=== PATIENT | male | born 1990 | race Caucasian/White ===

== ENCOUNTER 2017-07-13 06:50 | Emergency (ER) | payer OTHER ==
[2017-07-13 06:56] VITALS: RESP 18; TEMP 98.8
--- NOTE | 2017-07-13 07:58 | EDPHY ---
H & P Stated Complaint: Left ring finger laceration - Personal History Current Tetanus Diphtheria and Acellular Pertussis (TDAP): Yes - Medical/Surgical History Hx Asthma: No Hx Chronic Respiratory Disease: No Hx Diabetes: No Hx Cardiac Disease: No Hx Renal Disease: No Hx Cirrhosis: No Hx Alcoholism: No Hx HIV/AIDS: No Hx Splenectomy or Spleen Trauma: No - Social History Smoking Status: Never smoked Time Seen by Provider: 07/13/17 07:05 HPI/ROS: CHIEF COMPLAINT: "I smashed my hand between a dumpster and my truck" HISTORY OF PRESENT ILLNESS: The patient is a 26 y/o male arriving with his coworker/father complaining of a crush injury and laceration to his left ring finger. This morning while working he got his hand stuck between a dumpster and his vehicle. He saw the tip of his finger appeared mangled, though he initially felt more numbness than pain. He denies other injuries. He currently has moderate pain in his finger. He is normally healthy. REVIEW OF SYSTEMS: A 10 point review of systems was performed and is negative with the exception of the elements mentioned in the history of present illness. Past medical history: Tetanus up-to-date, otherwise negative Past surgical history: Noncontributory Family history: Noncontributory Social history: Coworker/father at bedside. Works for [employer]. Adult Physical: General Appearance: Alert, no acute distress. Eyes: Pupils equal and round, no conjunctival injection, no discharge. Respiratory: No distress. Normal respiratory effort. Cardiovascular: RRR. Bleeding from finger controlled. Skin: Warm and dry, no rashes, normal color. Laceration distal left ring finger. Left ring finger: crush injury with irregular 3.5cm laceration at distal end of finger extending from palmar side to dorsal side, nail dislodged along germinal matrix with associated tenderness. No other extremity trauma noted. Neurological: Alert and oriented. Moving all four extremities easily and equally. Left ring finger: flexion intact at PIP joint, flexion defect at DIP joint. Psychiatric: Normal affect. (Deborah Gleason) Constitutional: Initial Vital Signs Temperature (C) 37.1 C 07/13/17 06:51 Heart Rate 70 07/13/17 06:51 Respiratory Rate 18 07/13/17 06:51 Blood Pressure 151/98 H 07/13/17 06:51 O2 Sat (%) 97 07/13/17 06:51 O2 Delivery Mode Room Air Allergies/Adverse Reactions: No Known Allergies Allergy (Unverified 07/13/17 06:51) Home Medications: Medication Instructions Recorded Cephalexin [Keflex] 500 mg PO TID #21 cap 07/13/17 Hydrocodone/APAP 5/325 [[place] 1 - 2 tab PO Q4 PRN #10 tab 07/13/17 5/325 (RX)] Medical Decision Making - Diagnostics Imaging: I viewed and interpreted images myself Procedures: Procedure: Laceration repair. I was requested by Dr. Gleason to perform wound closure I explained the indications, risks and benefits for both laceration repair and anesthetic administration. Verbal consent was obtained from the patient. The laceration on the left middle digit was anesthetized using 0.5% bupivicaine with epinephrine digital nerve block. After anesthetic administered the patient was observed for a period of time and had no apparent adverse effects. The wound was cleaned, prepped, draped in normal sterile fashion and explored to its base. No foreign body seen, no foreign bodies palpated. There were no deep structures involved. FDP deficiency noted. The laceration involved the nail bed and the nail is partially avulsed. The nail was further removed by myself, the nail bed laceration closed with 4 simple interrupted 5 0 Vicryl sutures. The skin closed with 10 simple interrupted 5 O Ethilon sutures. The fingers then splinted by ER lab animal technician. The wound repair was complex. The procedure was performed by myself. Patient has been informed that scarring will occur, although efforts have been made to minimize this. (Trupti Hunter Ekta) ED Course/Re-evaluation: This is a healthy 26 y/o male who presents with a laceration and crush injury to his distal left ring finger after it was caught between a dumpster and vehicle this morning. The injury has disrupted the nail bed and is primarily along palmar aspect of the finger. He has normal flexion at the PIP joint and decreased flexion at the DIP joint. Bleeding is controlled. Plan for pain control with digital block, x-ray to rule out open fracture, and laceration repair. X-ray shows open, displaced tuft fracture of left 4th finger. IV established. 1gm IV Ancef administered for open fracture. Laceration repaired by FRANCES Hunter. [id number]: Consulted with Dr. Dobson, hand surgeon. He will follow up with patient in his clinic as an outpatient. He is noted to be hypertensive in the ED and is advised to have this followed up by his PCP within the month. (Deborah Gleason) Differential Diagnosis: DDX includes but is not limited to open/closed fracture, tendon injury, vascular injury, amputation, laceration, nail injury. (Deborah Gleason) - Data Points Medications Given: Discontinued Medications Cefazolin Sodium/Dextrose (Ancef 1 Gm (Premix)) 50 mls @ 200 mls/hr IV EDNOW ONE PRN Reason: Protocol Stop: 07/13/17 08:16 Last Admin: 07/13/17 08:24 Dose: 50 mls Departure - Departure Disposition: Home, Routine, Self-Care Clinical Impression: Open fracture of tuft of distal phalanx of finger, left ring finger, Crushing injury of finger of left hand Finger laceration involving tendon Qualifiers: Encounter type: initial encounter Qualified Code(s): S61.219A - Laceration without foreign body of unspecified finger without damage to nail, initial encounter; S66.929A - Laceration of unspecified muscle, fascia and tendon at wrist and hand level, unspecified hand, initial encounter; S66.929A - Laceration of unspecified muscle, fascia and tendon at wrist and hand level, unspecified hand, initial encounter Condition: Good Instructions: Finger Laceration (ED), Crush Injury (ED) Additional Instructions: 1. Take 600mg ibuprofen every 6-8 hours for pain and inflammation over the next few days. 2. Use [place] as prescribed when needed for severe pain. This can make you drowsy. Do not drive or operate heavy machinery while using it. 3. Take Keflex as prescribed. Be sure to complete the entire prescription. 4. Call Dr. Dobson, hand specialist, today to schedule a follow up appointment for next week. Tell his office you were seen in the ED for this injury and were referred to his office. Tell the office that you have a tendon injury. 5. Follow up with your workman's comp clinic as directed by your HR department. 6. Return for suture removal in 10-14 days if not otherwise arranged with hand specialist. 7. Return to the ED for severe pain, dramatic increase in redness or swelling, pus discharge from the wound, fever, or other worsening of condition. Referrals: Lorin Dobson MD [Medical Doctor] - As per Instructions Prescriptions: Cephalexin [Keflex] 500 mg PO TID #21 cap Hydrocodone/APAP 5/325 [[place] 5/325 (RX)] 1 - 2 tab PO Q4 PRN #10 tab PRN Reason: pain Report Scribed for: Deborah Gleason Report Scribed by: Jess Knight Date of Report: 07/13/17 Time of Report: 07:58 Physician Review and Approval Statement: 07/21/17 06:39 Portions of this chart were entered by a medical device sales. I personally performed the HPI, MDM, and PE. I have reviewed the contents of the chart and agree with the contents of the chart. (Deborah Gleason)
[2017-07-13 10:10] VITALS: BP 146/86; PULSE 71; O2SAT 96
== END 2017-07-13 10:08 | disposition home or self-care (01) ==
PROC: 0HQQXZZ Repair Finger Nail, External Approach (ICD-10-PCS; principal; 2017-07-13)
DX: S62.635B Displaced fracture of distal phalanx of left ring finger, initial encounter for open fracture (principal); S61.315A Laceration without foreign body of left ring finger with damage to nail, initial encounter; W23.1XXA Caught, crushed, jammed, or pinched between stationary objects, initial encounter; Y99.0 Civilian activity done for income or pay; Y93.89 Activity, other specified
CPT/HCPCS: 96365; J0690